=== PATIENT | female | born 1995 | race Asian ===

== ENCOUNTER 2020-08-04 10:32 | Emergency (ER) | payer OTHER ==
[~2020-08-04] VITALS: Ht 139.7 cm; Wt 41.7 kg
[2020-08-04 10:38] VITALS: BP_SYST 122
[2020-08-04] MEDS ORDERED: HYDR-3917 PO (12:14)
[2020-08-04] MEDS ORDERED: IBUP-1969 PO (12:14)
[2020-08-04 12:40] VITALS: BP_SYST 122
== END 2020-08-04 12:35 | disposition home or self-care (01) ==
LOC: SED 10:32
DX: S43.402A Unspecified sprain of left shoulder joint, initial encounter (principal); S23.3XXA Sprain of ligaments of thoracic spine, initial encounter; V49.49XA Driver injured in collision with other motor vehicles in traffic accident, initial encounter; Y93.89 Activity, other specified; Y92.89 Other specified places as the place of occurrence of the external cause; Y99.8 Other external cause status
CPT/HCPCS: 71045; 72040-TC; 73030; 81025; 99284